=== PATIENT | male | born 1990 | race Caucasian/White ===

== ENCOUNTER 2019-10-20 11:09 | Inpatient (IN) | payer MEDICAID ==
[~2019-10-20] VITALS: Ht 177.8 cm; Wt 103.4 kg
[2019-10-20 13:11] LABS: BASOPHILS % (AUTO) 1.2 % (0.0-2.0); EOSINOPHILS % (AUTO) 0.4 % (1.0-6.0); HEMATOCRIT 48.4 % (41-53); HEMOGLOBIN 16.3 g/dL (13.5-17.5); LYMPHOCYTES # (AUTO) 2.1 K/uL (1.0-4.8); LYMPHOCYTES % (AUTO) 24.1 % (22.0-44.0); MEAN CORPUSCULAR HEMOGLOBIN 29.4 pg (26.0-34.0); MEAN CORPUSCULAR HGB CONC 33.8 G/dL (31.0-37.0); MEAN CORPUSCULAR VOLUME 87 fL (80-100); MONOCYTES # (AUTO) 0.6 K/uL (0.1-1.0); MONOCYTES % (AUTO) 7.2 % (2.0-9.0); NEUTROPHILS # (AUTO) 5.9 K/uL (1.8-7.7); NEUTROPHILS % (AUTO) 67.1 % (40.0-70.0); PLATELET COUNT (AUTO) 317 K/uL (150-450); RED BLOOD CELL COUNT(AUTO) 5.56 MIL/uL (4.50-5.90); RED CELL DISTRIBUTION WIDTH 13.3 % (11.5-14.5)
[2019-10-20 13:29] LABS: ANION GAP 12 mmol/L (8-16); CALCIUM, TOTAL 9.3 mg/dL (8.8-10.5); CARBON DIOXIDE 28 mmol/L (22-29); CHLORIDE 102 mmol/L (98-107); CREATININE 0.89 mg/dL (0.60-1.30); GLOMERULAR FILTR. RATE CALC > 60 mL/min (>60); GLUCOSE,RANDOM 124 mg/dL (70-110); POTASSIUM 3.7 mmol/L (3.5-5.1); SODIUM SERUM 142 mmol/L (136-145); UREA NITROGEN, BLOOD 8 mg/dL (7-18)
[2019-10-20 13:35] LABS: ALANINE AMINOTRANSFERASE 173 U/L (12-78); ALBUMIN 4.4 g/dL (3.4-5.0); ALKALINE PHOSPHATASE 74 U/L (46-116); ASPARTATE AMINOTRANSFERASE 64 U/L (15-37); BILIRUBIN,TOTAL 0.6 mg/dL (0.1-1.0); TOTAL PROTEIN, SERUM 8.1 g/dL (6.4-8.2)
[2019-10-20] MEDS ORDERED: ZOLPIDEM TARTRATE 10 MG TABLET PO PRN (16:00)
[2019-10-20] MEDS: HALOPERIDOL 5 MG TABLET PO PRN (16:11)
[2019-10-20] MEDS: LORazepam 2 MG TABLET PO PRN (16:11)
[2019-10-20 19:34] VITALS: BP 126/61
[2019-10-20] MEDS: RisperiDONE 3 MG TABLET PO SCH (21:02)
[2019-10-21 06:38] VITALS: BP 118/74
[2019-10-21 08:32] VITALS: BP 105/64
[2019-10-21 08:52] LABS: FREE T4 (FREE THYROXINE) 1.03 ng/dL (0.76-1.46); THYROID STIMULATING HORMONE 0.97 uIU/mL (0.36-3.74)
[2019-10-21] MEDS: RisperiDONE 3 MG TABLET PO SCH ×2 (09:35→16:54)
[2019-10-21] MEDS: HALOPERIDOL 5 MG TABLET PO PRN (16:54)
[2019-10-21] MEDS: LORazepam 2 MG TABLET PO PRN (16:54)
[2019-10-21 18:04] VITALS: BP 112/68
[2019-10-21] MEDS ORDERED: MAGNESIUM HYDROXIDE SUSPENSION 30 ML UDCUP PO PRN (22:30)
[2019-10-21] MEDS ORDERED: ONDANSETRON HCL 4 MG TABLET PO PRN (22:30)
[2019-10-21] MEDS ORDERED: MAG HYDROX/AL HYDROX/SIMETH ES 30 ML SUSPENSION UDCUP PO PRN (22:30)
[2019-10-21] MEDS ORDERED: ACETAMINOPHEN 325 MG TABLET PO PRN (22:30)
[2019-10-21] MEDS ORDERED: DOCUSATE SODIUM 100 MG CAPSULE PO PRN (22:30)
[2019-10-21] MEDS ORDERED: ALBUTEROL SULFATE HFA 90 MCG/PUFF 8 GM INHALER IH PRN (22:30)
[2019-10-21] MEDS ORDERED: CloNIDine HCL 0.1 MG TABLET PO PRN (22:30)
[2019-10-21] MEDS ORDERED: IBUPROFEN 600 MG TABLET PO PRN (22:30)
[2019-10-21] MEDS ORDERED: BACITRACIN 28.4 GM OINTMENT TP PRN (22:30)
[2019-10-21] MEDS ORDERED: LOPERAMIDE HCL 2 MG CAPSULE PO PRN (22:30)
[2019-10-21] MEDS ORDERED: PETROLATUM,WHITE 28 GM JELLY TP PRN (22:30)
[2019-10-21] MEDS ORDERED: BENZOCAINE/MENTHOL LOZENGE MM PRN (22:30)
[2019-10-21] MEDS ORDERED: OMEPRAZOLE 20 MG CAPSULE PO PRN (22:30)
[2019-10-22 07:17] VITALS: BP 115/71
[2019-10-22 08:25] VITALS: BP 113/73
[2019-10-22] MEDS: RisperiDONE 3 MG TABLET PO SCH ×2 (08:36→17:09)
[2019-10-22 16:22] VITALS: BP 148/85
[2019-10-22] MEDS: LORazepam 2 MG TABLET PO PRN (17:09)
[2019-10-23 06:29] VITALS: BP 126/75
[2019-10-23 08:29] VITALS: BP 131/60
[2019-10-23] MEDS: LORazepam 2 MG TABLET PO PRN ×2 (08:45→15:52)
[2019-10-23] MEDS: HALOPERIDOL 5 MG TABLET PO PRN ×2 (08:45→15:52)
[2019-10-23] MEDS: RisperiDONE 3 MG TABLET PO SCH ×2 (08:45→16:43)
[2019-10-23 16:06] VITALS: BP 128/74
[2019-10-24 06:13] VITALS: BP 122/72
[2019-10-24] MEDS: HALOPERIDOL 5 MG TABLET PO PRN ×2 (08:25→17:00)
[2019-10-24] MEDS: RisperiDONE 3 MG TABLET PO SCH ×2 (08:25→17:00)
[2019-10-24] MEDS: LORazepam 2 MG TABLET PO PRN ×2 (08:25→17:00)
[2019-10-24 08:38] VITALS: BP 148/90
[2019-10-24 16:00] VITALS: BP 130/75
[2019-10-25 06:19] VITALS: BP 116/71
[2019-10-25 08:00] VITALS: BP 131/67
[2019-10-25] MEDS: RisperiDONE 3 MG TABLET PO SCH ×2 (09:34→17:43)
[2019-10-25] MEDS: LORazepam 2 MG TABLET PO PRN (11:42)
[2019-10-25] MEDS: HALOPERIDOL 5 MG TABLET PO PRN (11:43)
[2019-10-25 16:06] VITALS: BP 130/69
[2019-10-26 06:40] VITALS: BP 128/66
[2019-10-26 08:00] VITALS: BP 141/88
[2019-10-26] MEDS: RisperiDONE 4 MG TABLET PO SCH ×2 (09:05→17:21)
[2019-10-26 16:05] VITALS: BP 133/66
[2019-10-27 01:30] VITALS: BP 128/71
[2019-10-27 08:22] VITALS: BP 139/70
[2019-10-27] MEDS: RisperiDONE 4 MG TABLET PO SCH ×2 (08:41→16:06)
[2019-10-27] MEDS: LORazepam 2 MG TABLET PO PRN (08:41)
[2019-10-27 16:08] VITALS: BP 129/68
[2019-10-27] MEDS ORDERED: RISP4 PO (17:59)
== END 2019-10-27 20:23 | disposition home or self-care (01) | DRG 750 ==
LOC: EMS 11:16 → B3A 16:27
PROVIDERS: ADMIT Psychiatry & Neurology Psychiatry; ATTEND Psychiatry & Neurology Psychiatry
DX: F20.0 Paranoid schizophrenia (principal); Z59.0 Homelessness; G47.00 Insomnia, unspecified; K59.00 Constipation, unspecified
CPT/HCPCS: 80074; 84439; 84443; G0480